=== PATIENT | female | born 1985 | race Caucasian/White ===

== ENCOUNTER 2023-02-27 19:38 | Emergency (ER) | payer SELFPAY ==
[2023-02-27 19:38] VITALS: BP 110/62; PULSE 79; RESP 18; TEMP 36.3; O2SAT 99
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
[2023-02-27 19:50] LABS: Glucose Point of Care 105 mg/dl (65-105)
== END 2023-02-27 20:44 | disposition home or self-care (01) ==
PROVIDERS: Emergency Provider Internal Medicine Critical Care Medicine
DX: L98.492 Non-pressure chronic ulcer of skin of other sites with fat layer exposed (principal); F17.200 Nicotine dependence, unspecified, uncomplicated
CPT/HCPCS: 82948; 99282

== ENCOUNTER 2023-12-07 19:58 | Emergency (ER) | payer OTHER, SELFPAY ==
[2023-12-07 19:59] VITALS: BP 117/80; PULSE 92; RESP 18; TEMP 36.3; O2SAT 100
--- NOTE | 2023-12-07 21:19 | ED.SKABFB ---
HPI - Skin/Abscess/Foreign Bdy General Chief complaint: Skin/Abscess/Foreign Body Stated complaint: cyst Time Seen by Provider: 12/07/23 20:06 History of Present Illness HPI narrative: patient with a history of epidermoid cysts on her back. She reports that over the past week cyst on her upper mid back is been expanding and more painful. She was seen at a different local ER and started on a course of cephalexin on 12/02/2023. She reports since that time the cyst on her back it has become more painful, tense, expanded. The patient is now reporting 10/10 pain at the site. Remainder of ROS was negative for fever, chills, nausea, vomiting, headache, vision changes, chest pain, sob, abdominal pain, or changes in diet, bladder, or bowel habits. Related Data Home Medications Medication Instructions Recorded Confirmed fluoxetine 20 mg PO DAILY 02/27/23 02/27/23 sulfamethoxazole 800 See Rx Instructions .Route .COMPLEX 02/27/23 02/27/23 mg-trimethoprim 160 mg tablet (Bactrim DS) Allergies Allergy/AdvReac Type Severity Reaction Status Date / Time aspirin Allergy Rash Verified 02/27/23 19:59 [facility] Past Medical History Medical History (Updated 12/07/23 @ 21:32 by Ben Burgos MD) Depression Gestational diabetes Rh negative status during Social History Social History (Updated 02/27/23 @ 19:53 by Perez Peña MD) Social History: smoker Exam Narrative: GEN: Awake, alert, and appropriate to situation. Well appearing, well nourished, nontoxic, NAD. HEENT: No rhinorrhea noted, mucous membranes moist. No scleral icterus or conjunctival injection. NEURO: Normal speech. No lateralizing or focal deficits noted. There is a 2 cm x 2 cm head to assist with that surrounding base that is approximately 4 cm x 4 cm with erythema and induration. The area is exquisitely tense. There is no other evidence of spreading infection in the area no other cysts noted on exam of the patient's back. Discussed with the patient the risks and benefits of proceeding with an incision and drainage. The risks include pain in bleeding. The benefits include improvement of pain long-term and resolution of infection. The patient opts to proceed with incision and drainage. discussed with the patient option to use lidocaine. discussed that with very tense abscesses such as this one often the numbing is more painful than the actual incision itself. I nonetheless offer lidocaine but after discussion the patient opted to proceed without any. Brief time-out was performed where we confirmed the patient and the site of the incision and drainage. the area was cleaned using chlorhexidine. And draped. An 11 blade scalpel was used to incise 2 points of maximum fluctuance. The abscess immediately drained of large volume of purulent material. A culture was collected from this. The wound was allowed to drain spontaneously before expressing more purulence material. Overall approximately 10 cc of purulent material was expressed from the abscess this was a mix of pure pus as well as what appeared to be the contents of an epidermoid cyst. The area was explored using the handle of a cotton tip applicator and all loculations were broken. A small piece of IV tubing was placed through that to incision points to allow the wound to drain over the next couple of days. The wound was then cleaned with chlorhexidine again and water before being dressed with a 4 x 4 and a Tegaderm. Course Vital Signs Vital signs: Vital Signs Temperature 36.3 C L 12/07/23 19:59 Pulse Rate 92 12/07/23 19:59 Respiratory Rate 18 12/07/23 19:59 Blood Pressure 117/80 12/07/23 19:59 Pulse Oximetry 100 12/07/23 19:59 Oxygen Delivery Room Air 12/07/23 19:59 Temperature 36.3 C L 12/07/23 19:59 Pulse Rate 92 12/07/23 19:59 Respiratory Rate 18 12/07/23 19:59 Blood Pressure 117/80 12/07/23 19:59 Pulse Oximetry 100 1
[2023-12-07 21:30] VITALS: BP 106/48; PULSE 74; RESP 18
[2023-12-07 21:33] VITALS: PULSE 77; RESP 20; TEMP 36.9; O2SAT 97
--- NOTE | 2023-12-09 12:42 | PC.NURSE ---
PRELIMINARY WOUND CULTURE RESULTS AEROBIC: GRAM NEGATIVE BACILLI, GRAM POSITIVE COCCI. PER DR ADAN, TO AWAIT C&S.
--- NOTE | 2023-12-11 13:22 | PC.NURSE ---
PRELIMINARY BLOOD CULTURE RESULTS, NO CHANGE TO DATE.
== END 2023-12-07 21:36 | disposition home or self-care (01) ==
PROVIDERS: Emergency Provider Family Medicine; PCP Family Medicine
DX: L02.212 Cutaneous abscess of back [any part, except buttock and flank] (principal)
CPT/HCPCS: 10060; 87070; 87205; 99283

== ENCOUNTER 2024-01-28 18:18 | Emergency (ER) | payer OTHER, SELFPAY ==
[2024-01-28 18:22] VITALS: BP 110/84; PULSE 79; RESP 18; TEMP 36.4; O2SAT 98
--- NOTE | 2024-01-28 18:40 | ED_ITS ---
HPI - Skin/Abscess/Foreign Bdy General Chief complaint: Skin/Abscess/Foreign Body Stated complaint: Abscess Time Seen by Provider: 01/28/24 18:30 Source: patient Mode of arrival: ambulatory Limitations: no limitations History of Present Illness HPI narrative: 38 year old female presents to the Emergency Department complaining of abscess to upper back. Patient states she was here a month ago and had abscess I&D. States continues to drain. Has not followed up with her Primary Care Physician. No fever, nausea, vomiting, diarrhea. complaint: abscess/boil Onset (ago): month(s) Location: back Severity: moderate Quality: aching Relieving factors: none Exacerbating factors: none Associated symptoms: denies other symptoms Treatments prior to arrival: antibiotic and other (I&D in ED a month ago) Related Data Home Medications ?Medication ?Instructions ?Recorded ?Confirmed ?Last Taken ?Type fluoxetine 20 mg PO DAILY 02/27/23 02/27/23 Unknown History sulfamethoxazole 800 See Rx Instructions .Route .COMPLEX 02/27/23 02/27/23 Unknown History mg-trimethoprim 160 mg tablet (Bactrim DS) Allergies Allergy/AdvReac Type Severity Reaction Status Date / Time aspirin Allergy Rash Verified 02/27/23 19:59 Review of Systems Review of Systems: All systems reviewed & are unremarkable except as noted in HPI and below Constitutional: Constitutional: Reports as per HPI, Denies chills and Denies fever(s) Eyes: Eyes: Reports as per HPI ENT: Reports system reviewed and no additional complaints, except as documented Cardiovascular: Cardiovascular: Reports as per HPI and Denies chest pain Respiratory: Respiratory: Reports as per HPI and Denies dyspnea Gastrointestinal: Gastrointestinal: Reports as per HPI, Denies diarrhea, Denies nausea and Denies vomiting Genitourinary: Genitourinary: Reports no additional female genitourinary complaints Musculoskeletal: Musculoskeletal: Reports no additional musculoskeletal complaints Integumentary/Breasts: Skin/Breast: Reports system reviewed and no additional complaints, except as docu Neurologic: Reports system reviewed and no additional complaints, except as documented PMFSH Past Medical History Medical History Depression Rh negative status during Gestational diabetes Social History Social History Social History: smoker Exam Const: General: no acute distress Nutritional Appearance: obese Orientation/consciousness: patient oriented x3 Limitations: no limitations HENMT: Head: normal to inspection Ears: external ears normal Face/Nose/Sinus: Normal external nose present Face and sinus: normal facial exam Mouth: Yes Normal oral and palatal mucosa present Eyes: Conjunctivae: conjunctivae normal Pupils: Equal, round and reactive pupils present EOM: EOMs intact bilaterally Neck: Neck: normal visual inspection Chest: Chest palpation & inspection: normal inspection of the chest Resp: Effort & Inspection: normal respiratory effort Cardio: Rate: regular rate GI: Inspection: non-distended Back/Spine/Pelvis: Other: spontaneously draining abscess to upper back midline Skin: General skin exam: normal color Other: spontaneously draining abscess to upper back midline Neuro: General: patient oriented x3 Cranial nerves: Yes Nystagmus not present Speech: normal speech Gait exam (Neuro): Normal gait present Other: grossly normal Extrem: General: normal to inspection Psych: Mental Status: mental status grossly normal Course Course Emergency Course: 38 y/o female presents to the ED c/o abscess to upper back. Was seen in ED a month ago and had I&D. continues to drain. Has not f/u PCP. PE: spontaneously draining abscess to mid upper back Wound C&S: pending Rx and Instructions Vital Signs Vital signs: Vital Signs Temperature 36.4 C L 01/28/24 18:22 Pulse Rate 79 01/28/24 18:22 Respiratory Rate 18 01/28/24 18:22 Blood Pressure 110/84 01/28/24 18:22 Pulse Oximetry 98 01/28/24 18:22 Oxygen Delivery Room Air 01/28/24 18:22 Temperature 36.4 C L 01/28/24 18:22 Pulse Rate 79 01/28/24 18:22 Respiratory Rate 18 01/28/24 18:22 Blood Pressure 110/84 01/28/24 18:22 Pulse Oximetry 98 01/28/24 18:22 Oxygen Delivery Room Air 01/28/24 18:22 Discharge Plan Discharge Clinical Impression: Abscess of skin or subcutaneous tissue Patient Disposition: Home, Self-Care Condition: Stable Instructions: Antibiotic Form, Abscess (ED) Additional Instructions: Take medication as prescribed Warm compresses Tylenol, Ibuprofen and Aleve as needed Follow up Primary Care Physician 2-3 days Patient Language: Sinhala Prescriptions: New sulfamethoxazole-trimethoprim [Bactrim DS] 800-160 mg tablet 1 tablet PO Q12H Qty: 20 0RF No Action sulfamethoxazole-trimethoprim [Bactrim DS] 800-160 mg tablet See Rx Instructions .ROUTE .COMPLEX Rx Instructions: . fluoxetine 20 mg PO DAILY Follow-up/Referrals: Km,Mary Mariano MD [Primary Care Provider] - Time of Disposition: 18:48
--- NOTE | 2024-01-29 16:46 | PC.NURSE ---
pt called states rx did not go to [facility], called rx in to pharmacy.
--- NOTE | 2024-01-31 12:30 | PC.NURSE ---
PRELIMINARY ABSCESS CULTURE; NO GROWTH
--- NOTE | 2024-02-01 13:19 | PC.NURSE ---
pt abscess culture reviewed, no growth, final
== END 2024-01-28 19:02 | disposition home or self-care (01) ==
LOC: CHSED 18:52
PROVIDERS: Emergency Provider Emergency Medicine; PCP Family Medicine
DX: L02.212 Cutaneous abscess of back [any part, except buttock and flank] (principal)
CPT/HCPCS: 87070; 87205; 99283

== ENCOUNTER 2024-03-10 09:37 | Emergency (ER) | payer OTHER, SELFPAY ==
[2024-03-10 09:43] VITALS: BP 134/83; PULSE 101; RESP 18; TEMP 36.3; O2SAT 99
--- NOTE | 2024-03-10 09:43 | ED.URI ---
HPI - URI/Sore Throat General Chief Complaint: Upper Respiratory Infection Stated Complaint: URI Time Seen by Provider: 03/10/24 09:39 Source: patient Mode of arrival: ambulatory Limitations: no limitations History of Present Illness HPI Narrative: 38 year old female presents to the Emergency Department complaining of cough and congestion since yesterday. Cough non-productive. States had fever yesterday. States throat sore. No known exposure [works exposed to public at [employer]]. No vomiting or diarrhea. Smoker. MD elicited complaint: fever, cough, sore throat, rhinorrhea and nasal congestion Onset (ago): day(s) (1) Consistency: constant Severity: moderate Able to tolerate fluids by mouth: Yes Exacerbating factors: nothing Relieving factors: nothing Treatments prior to arrival: none Related Data Home Medications ?Medication ?Instructions ?Recorded ?Confirmed ?Last Taken ?Type fluoxetine 20 mg PO DAILY 02/27/23 02/27/23 Unknown History sulfamethoxazole 800 See Rx Instructions .Route .COMPLEX 02/27/23 02/27/23 Unknown History mg-trimethoprim 160 mg tablet (Bactrim DS) Allergies Allergy/AdvReac Type Severity Reaction Status Date / Time aspirin Allergy Rash Verified 03/10/24 09:53 Review of Systems Review of Systems: All systems reviewed & are unremarkable except as noted in HPI and below Constitutional: Constitutional: Reports as per HPI and Reports fever(s) Eyes: Eyes: Reports as per HPI ENT: Reports system reviewed and no additional complaints, except as documented, Reports nasal congestion and Reports sore throat Cardiovascular: Cardiovascular: Reports as per HPI Respiratory: Respiratory: Reports as per HPI and Reports cough Gastrointestinal: Gastrointestinal: Reports as per HPI, Denies abdominal pain, Denies diarrhea, Denies nausea and Denies vomiting Genitourinary: Genitourinary: Reports no additional female genitourinary complaints Musculoskeletal: Musculoskeletal: Reports no additional musculoskeletal complaints Integumentary/Breasts: Skin/Breast: Reports system reviewed and no additional complaints, except as docu Neurologic: Reports system reviewed and no additional complaints, except as documented Psychiatric: Psychiatric: Reports no additional psychiatric complaints Endocrine: Endocrine: Reports no additional endocrine complaints Hematologic/Lymphatic: Hematologic/Lymphatic: Reports no additional hematologic/lymphatic complaints Allergic/Immunologic: Allergic/Immunologic: Reports no additional allergic/immunologic complaints PMFSH Past Medical History Medical History Depression Rh negative status during Gestational diabetes Social History Social History Social History: smoker Exam Const: General: no acute distress and alert Nutritional Appearance: well nourished Orientation/consciousness: patient oriented x3 Limitations: no limitations HENMT: Head: normal to inspection Ears: external ears normal Face/Nose/Sinus: Normal external nose present Face and sinus: normal facial exam Mouth: Yes Normal oral and palatal mucosa present Teeth and gingiva: dentition normal Throat: posterior oropharynx normal Eyes: Conjunctivae: conjunctivae normal Pupils: Equal, round and reactive pupils present EOM: EOMs intact bilaterally Direct Ophthalmoscopy: no photophobia Neck: Neck: normal visual inspection and no meningeal signs Chest: Chest palpation & inspection: normal inspection of the chest Resp: Effort & Inspection: normal respiratory effort Auscultation: clear to auscultation bilaterally Cardio: Rate: regular rate Rhythm: regular rhythm GI: Inspection: non-distended GI Palp: Yes Soft to palpation and No Tenderness to palpation present (GI) Back/Spine/Pelvis: Back: no CVA tenderness Skin: General skin exam: normal color Rashes: no rashes Neuro: General: patient oriented x3 and no meningeal signs Gait exam (Neuro): Normal gait present Other: grossly normal Extrem: General: normal to inspection and no clubbing, cyanosis or edema Psych: Mental Status: mental status grossly normal Course Course Emergency Course: 38 y/o female presents to the ED c/o URI symptoms. Onset yesterday. PE: no acute findings Strep: negative Covid: negative Influenza: A+ RSV: negative *reviewed and discussed results with patient. Discussed further management. Patient voices understanding and agreement. Rx and Instructions Vital Signs Vital signs: Vital Signs Oxygen Delivery Room Air 03/10/24 09:37 Temperature 36.3 C L 03/10/24 09:43 Pulse Rate 101 H 03/10/24 09:43 Respiratory Rate 18 03/10/24 09:43 Blood Pressure 134/83 03/10/24 09:43 Pulse Oximetry 99 03/10/24 09:43 Oxygen Delivery Room Air 03/10/24 09:43 MDM - URI/Sore Throat Lab Data Labs: Lab Results 03/10/24 Range/Units 09:43 Influenza A (RT-PCR) Positive A (Negative) Influenza B (RT-PCR) Negative (Negative) RSV (RT-PCR) Negative (Negative) SARS-CoV-2 RNA (RT-PCR) Negative (Negative) Group A Strep (PCR) Not detected (Negative) Discharge Plan Discharge Clinical Impression: Influenza Patient Disposition: Home, Self-Care Condition: Stable Instructions: Influenza (ED) Additional Instructions: Rest Push fluids Tylenol 650 mg every 4 hours and Ibuprofen 600 mg every 6 hours for fever and body aches Take medication as prescribed Follow up Primary Care Physician Patient Language: German Prescriptions: New oseltamivir [Tamiflu] 75 mg capsule 75 mg PO Q12H 5 Days Qty: 10 0RF No Action sulfamethoxazole-trimethoprim [Bactrim DS] 800-160 mg tablet See Rx Instructions .ROUTE .COMPLEX Rx Instructions: . fluoxetine 20 mg PO DAILY sulfamethoxazole-trimethoprim [Bactrim DS] 800-160 mg tablet 1 tablet PO Q12H Qty: 20 0RF Follow-up/Referrals: UNKNOWN,DOCTOR [Primary Care Provider] - Stand Alone Forms: Work/School Release IP Time of Disposition: 11:03
[2024-03-10 10:36] LABS: Strep Group A RT-PCR NOT DETECTED (Negative)
[2024-03-10 10:44] LABS: SARS-CoV-2 RNA PCR Negative (Negative)
[2024-03-10 10:47] LABS: Influenza A QL RT-PCR Positive (Negative); Influenza B QL RT-PCR Negative (Negative); RSV RNA, RT-PCR Negative (Negative)
[2024-03-10 11:15] VITALS: BP 112/74; PULSE 94; RESP 16; TEMP 38.7; O2SAT 97
[2024-03-10 11:19] VITALS: TEMP 38.7
== END 2024-03-10 11:10 | disposition home or self-care (01) ==
PROVIDERS: Emergency Provider Emergency Medicine
DX: J11.1 Influenza due to unidentified influenza virus with other respiratory manifestations (principal); Z20.822 Contact with and (suspected) exposure to COVID-19
CPT/HCPCS: 87637; 87651; 99283